=== PATIENT | female | born 1955 | race Caucasian/White ===

== ENCOUNTER 2019-09-14 15:16 | Inpatient (IN) | payer SELFPAY ==
[2019-09-14] VITALS (10 sets, daily range): BP systolic 136–162; BP diastolic 67–97; PULSE 91–108; RESP 16–22; TEMP 36.7–37.2; O2SAT 97–100; BMI 50.1
--- NOTE | ~2019-09-14 | XR_ITS ---
EXAMINATION: XR chest 1V portable EXAM DATE: 09/14/2019 16:04 INDICATION: Fall. TECHNIQUE: Frontal and lateral projections of the chest obtained and reviewed. There is no prior han dy for comparison. FINDINGS: The lungs are clear. There are no pleural effusions. Cardiac silhouette is prominent but magnified on this AP technique. There is no pneumothorax suspected. The bones and soft tissues are unremarkable. IMPRESSION: No acute cardiopulmonary findings. Reviewed, dictated and finalized at location A. CLERK
--- NOTE | ~2019-09-14 | XR_ITS ---
XR lumbar spine 2-3V 09/15/2019 08:51 Indication: Low back pain after fall Procedure: 3 views lumbar spine Comparison: No prior studies for comparison. Findings: There is disc narrowing at L3-4 and L1-2. There are prominent marginal osteophytes at L2-3, L3-4 and L5-S1. There is moderate mid and lower facet hypertrophy. No acute fracture or traumatic ma lalignment. No evidence for spondylolisthesis. Mild levocurvature. Sacral foramen are symmetric. Impression: 1: Moderate lumbar spondylosis. Reviewed, dictated and finalized at location A. SPHERIC TECHNICIAN Impression: 1: Moderate lumbar spondylosis.
--- NOTE | 2019-09-14 15:22 | ED_ITS ---
I attest that this documentation has been prepared under the direction and in the presence of . Aziza Lacey Scribe 09/14/19;15:22 HPI - General Adult General Stated complaint: FALL Time Seen by Provider: 09/14/19 15:17 Source: patient Mode of arrival: EMS Limitations: no limitations History of Present Illness HPI narrative: A 64 y/o female presents to the ED, via EMS, with c/o
--- NOTE | 2019-09-14 15:22 | ED.BACK ---
HPI - Back Pain/Injury General Chief Complaint: Back Pain/Injury Stated Complaint: FALL Time Seen by Provider: 09/14/19 15:16 Source: patient Mode of arrival: EMS Limitations: no limitations History of Present Illness HPI Narrative: A 64 y/o female presents to the ED, via EMS, with c/o chronic back pain that recently worsened. Per EMS, they arrived on the scene to find the pt laying on the floor. Pt was walking to get her medicine when she experienced severe back pain and lowered herself to the floor. Pt was incontinent of her urine. Pt lives alone and states she had been laying on the carpeted floor since 6:30 AM. Pt was able to reach a phone and call her son. Pt's son arrived and called EMS. Pt states she has had back pain for several years and is prescribed Cyclobenzaprine by her PCP. Pt did not eat breakfast this morning or take her medications. She reports diarrhea yesterday, left elbow pain, and a PMHx of DM and a HI with stents, but denies LOC, a fall, a fever, N/V, constipation, smoking, alcohol use, and a PMHx of a CVA. Pertinent past history: prior back pain Onset (ago): year(s) Timing: progressively worsening Related Data Home Medications Medication Instructions Recorded Confirmed Aspirin Low Dose 09/14/19 Celebrex 09/14/19 ProAir HFA 09/14/19 Singulair 09/14/19 Toprol XL 09/14/19 Victoza 2-Talib 09/14/19 albuterol sulfate 09/14/19 alendronate-vitamin D3 09/14/19 atorvastatin 09/14/19 cyclobenzaprine 09/14/19 magnesium 09/14/19 metformin 09/14/19 nitroglycerin 09/14/19 pantoprazole 09/14/19 Allergies Allergy/AdvReac Type Severity Reaction Status Date / Time ampicillin Allergy Unknown Verified 09/14/19 15:50 doxycycline Allergy Unknown Verified 09/14/19 15:50 Review of Systems Review of Systems: All systems reviewed & are unremarkable except as noted in HPI and below Constitutional: Constitutional: Denies fever(s) Comments: Denies: a fall Gastrointestinal: Gastrointestinal: Denies constipation, Reports diarrhea (yesterday), Denies nausea and Denies vomiting Genitourinary: Genitourinary: Reports urinary incontinence Musculoskeletal: Musculoskeletal: Reports back pain (chronic) Comments: Reports: left elbow pain Neurologic: Comments: Denies: LOC PMFSH Past Medical History Medical History (Updated 09/14/19 @ 19:04 by Zen Garcia MD) Diabetes Myocardial infarction with stents Social History Social History (Updated 09/14/19 @ 15:37 by Isha Melendez) Smoking status: Never smoker Alcohol intake: never Gender identity (if verbalized by the patient): Female Exam Narrative: Exam Narrative: General appearance: Well-developed, well-nourished, patient laying down in bed, poor hygienic condition, stool and urine all over the place, unable to sit up because of the pain in the lower back, Skin: Normal color Head: Normocephalic, nontraumatic Eyes: Clear conjunctiva ENT: Oropharynx normal, ears normal, nose normal Neck: Supple, nontender Chest and respiratory: Airway patent, no respiratory distress, no accessory muscle use Heart: Regular rate/rhythm Abdomen: Soft, nontender, no organomegaly, quiet bowel sounds Vascular: Normal peripheral pulses, normal capillary refill. Musculoskeletal: Diffuse tenderness across lumbar area, no bruises, no swelling, no step-off k Neurologic: Alert and oriented ?3, EDI COORDINATOR is normal as tested, no gross motor deficit Course Course Emergency Course: Improving Consultations Consultation #1: Discussed case with Mee and accepted admission. Date: 09/14/19 Time: 17:39 Vital Signs Vital signs: Vital Signs Temperature 36.9 C 09/14/19 15:38 Pulse Rate
--- NOTE | 2019-09-14 15:46 | ECG_ITS ---
Measurements Intervals [place] Rate: 96 P: 44 RI: 163 QRS: 49 QRSD: 93 T: 46 QT: 358 QTc: 454 Interpretive Statements SINUS RHYTHM POSSIBLE LEFT ATRIAL ENLARGEMENT LOW QRS VOLTAGE IN PRECORDIAL LEADS BASELINE ARTIFACT- I, II, AVR, V1 BORDERLINE ECG Electronically Signed On 09-14-2019 21:20:50 MALT HOUSE SUPERVISOR by Madan Milton D.O.
[2019-09-14 16:22] LABS: Alveolar/Arterial O2 Gradient 36.3 mmHg; Base Excess ABG -5.6 mEq/l (+/-2.0); Carboxyhemoglobin 1.4 % THb (0-2.0); Fractional Inspired Oxygen 21 %; HCO3 ABG 18.5 mEq/l (22.0-26.0); Methemoglobin ABG 0.3 %THb (0-1.5); Oxygen Content ABG 16.9 %vol (16.0-22.0); Oxygen Saturation ABG 95.1 % (95.0-100.0); Oxyhemoglobin 93.5 % THb (90.0-100.0); PCO2 ABG 31.9 mmHg (35.0-45.0); PO2 ABG 75.2 mmHg (80.0-100.0); PO2 FiO2 Ratio Arterial Blood 3.58 %; Reduced Hemoglobin 4.8 %THb (0-5.0); Total Hemoglobin 12.8 g/dL (12.0-18.0); pH ABG 7.381 (7.350-7.450)
[2019-09-14 16:23] LABS: Modified Allen's Test Pass; Site Drawn LEFT RADIAL
[2019-09-14 16:24] LABS: Device ROOM AIR
[2019-09-14 16:36] LABS: Basophils Absolute Auto 0.1 K/mm3 (0.0-0.1); Basophils Percent Auto 0.4 % (0.2-1.2); Eosinophils Percent Auto 0.2 % (0-4.4); Immature Granulocyte Absolute 0.08 K/mm3 (0.00-0.031); Immature Granulocyte Percent A 0.6 % (0-0.5); Lymphocytes Absolute Auto 1.77 K/mm3 (0.9-3.2); Lymphocytes Percent Auto 13.1 % (18.3-44.2); Mean Corpuscular HGB Conc 30.2 g/dl (32-36); Mean Corpuscular Hemoglobin 27.9 pg (26-34); Mean Corpuscular Volume 92.3 fl (80-100); Mean Platelet Volume 8.8 fl (7.4-10.4); Monocytes Percent Auto 7.1 % (2.6-8.5); Neutrophils Absolute Auto 10.7 K/mm3 (1.3-6.7); Neutrophils Percent Auto 78.6 % (45.5-73.1); Nucleated Red Blood Cells Perc 0.1 % (0.0-0.2); Platelet Count Result 357 k/mm3 (150-375); Red Blood Count 4.66 M/mm3 (4.2-5.4); Red Cell Distribution Width 14.5 % (11.5-14.5); White Blood Count 13.6 K/mm3 (4.5-10.0)
[2019-09-14 16:50] LABS: Alanine Aminotransferase 20 U/L (4-35); Albumin Level 4.5 g/dL (3.5-5.1); Alkaline Phosphatase 98 U/L (38-126); Aspartate Amino Transferase 35 U/L (14-36); Bilirubin,Total 0.3 mg/dL (0.2-1.3); Blood Urea Nitrogen 16 mg/dL (7-17); Calcium 10.2 mg/dL (8.4-10.2); Carbon Dioxide 15 mmol/L (22-30); Chloride 113 mmol/L (98-107); Creatine Kinase 313 U/L (30-135); Estimated Glomerular Filt Rate > 60; Glucose 178 mg/dL (65-105); Sodium 145 mmol/L (137-145)
[2019-09-14 17:10] LABS: Troponin I 0.517 ng/mL (0.000-0.034)
[2019-09-14 17:13] LABS: Add Urine Microscopic? YES; Appearance Urine Clear (Clear); Bilirubin Urine Negative (Negative); Blood Urine 1+ (Negative); Color Urine Colorless (Yellow); Glucose Urine UA Negative (Negative); Ketones Urine Negative (Negative); Leukocyte Esterase Ur Negative LEU/UL (Negative); Mucus Urine Rare /lpf; Nitrate Urine Negative (Negative); Protein Urine Negative (Negative); Specific Grav Ur 1.009 (1.001-1.035); Squamous Epithelial Cell Urine Rare /hpf (Few); Urobilinogen Urine Negative mg/dL (<2.0)
[2019-09-14 17:26] LABS: Amphetamine Screen Urine Negative (Negative); Barbiturate Screen Urine Negative (Negative); Benzodiazepines Screen Urine Negative (Negative); Cannabinoid Screen Urine Negative (Negative); Cocaine Screen Urine Negative (Negative); Methadone Screen Urine Negative (Negative); Opiate Screen Urine Negative (Negative); Phencyclidine Screen Urine Negative (Negative)
[2019-09-14] MEDS: ONDANSETRON INJ 4 MG/2 ML VIAL IV PUSH (17:59)
[2019-09-14] MEDS: MORPHINE SULFATE 4 MG/ML INJ IV PUSH (17:59)
[2019-09-14] MEDS: ASPIRIN 81 MG CHEWABLE TABLET 324 MG PO (18:00)
[2019-09-14] MEDS: ENOXAPARIN 100 MG/ML SYRINGE 110 MG SUB-Q (18:02)
--- NOTE | 2019-09-14 19:04 | ADMGEN ---
This patient, Ayse Taveras, was admitted to IMU Room 203-01 at 09/14/19 @ 1837. Patient/family oriented to hospital policies and general routines including ID bracelet, bed and alarms, visiting hours, pain management, procedures, bathroom and other care routines, personal items, smoking policy, room service/diet, and visiting hours. Valuables list has been completed. Information on how to activate the Rapid Response Team has been discussed. Patient/Family are encouraged to report perceived risks to care and to ask questions if they do not understand what they are told or what they should do.
[2019-09-14 20:22] LABS: Troponin I 0.595 ng/mL (0.000-0.034)
--- NOTE | 2019-09-14 20:51 | ADMGEN ---
This patient, Ayse Taveras, was admitted to IMU Room 203-01. Patient/family oriented to hospital policies and general routines including ID bracelet, bed and alarms, visiting hours, pain management, procedures, bathroom and other care routines, personal items, smoking policy, room service/diet, and visiting hours. Valuables list has been completed. Information on how to activate the Rapid Response Team has been discussed. Patient/Family are encouraged to report perceived risks to care and to ask questions if they do not understand what they are told or what they should do.
[2019-09-14] MEDS: ACETAMINOPHEN 325 MG TABLET 650 MG PO (22:49)
[2019-09-14 23:05] LABS: Troponin I 0.591 ng/mL (0.000-0.034)
--- NOTE | 2019-09-14 23:16 | PM.IMHP ---
H&P: HPI History of Present Illness Chief complaint: nstemi/exacerbation of lower back pain Narrative: Ayse Taveras is a 64 year old female who lives home alone. She has chronic back pain. Today the patient stated that she was bending over spreading out the branches on her [place] tree when her back started to her. The patient stated that her back felt weak and she could not stand up straight again. The patient tried hold on but slid onto the floor. The patient stated that she tried to get off the floor but was unable to. She was on the floor at 6:30 a.m. the morning of then waited to her son came home about 11 to give him a call. She thought maybe he was still at work and wanted to give him time to get home. Her son came over and attempted to get her to roll over and get up. It sounds like she took a Flexeril and then went back into the bed and slept for a little bit. The patient is chronically on Flexeril. She did eat breakfast this morning per reported diarrhea yesterday. Patient was not even able to roll over out of bed so her son activated EMS. Troponin left was 0.517 and the patient does not have any chest pain. The patient has a history of having coronary stents in the past. The patient is diabetic. Patient is admitted for elevated troponins and back pain. The back pain is chronic but just recently got worse today Review of Systems Review of Systems: All systems reviewed & are unremarkable except as noted in HPI and below Constitutional: Constitutional: Reports as per HPI and Reports fatigue Eyes: Eyes: Reports as per HPI and Reports no additional eye complaints ENT: Reports system reviewed and no additional complaints, except as documented and Reports hearing normal Comments: Floaters to right eye which was checked up with eye doctor. Cardiovascular: Cardiovascular: Reports no additional cardiovascular complaints Comments: No complaints of chest pain. History of stents. Respiratory: Respiratory: Reports no additional respiratory complaints and Reports no additional respiratory complaints Gastrointestinal: Gastrointestinal: Reports as per HPI and Reports no additional gastrointestinal complaints Musculoskeletal: Musculoskeletal: Reports no additional musculoskeletal complaints Integumentary/Breasts: Skin/Breast: Reports system reviewed and no additional complaints, except as docu and Reports as per HPI Neurologic: Reports system reviewed and no additional complaints, except as documented, Reports as per HPI and Reports Normal hearing present Psychiatric: Psychiatric: Reports no additional psychiatric complaints and Reports as per HPI Endocrine: Endocrine: Reports no additional endocrine complaints Hematologic/Lymphatic: Hematologic/Lymphatic: Reports no additional hematologic/lymphatic complaints Allergic/Immunologic: Allergic/Immunologic: Reports no additional allergic/immunologic complaints [facility] Past Medical History Medical History (Updated 09/14/19 @ 23:38 by Mee Machuca NP) Asthma Diabetes GERD with esophagitis Hyperlipidemia Myocardial infarction with stents Obstructive sleep apnea Osteoarthritis Psoriasis Vitamin D deficiency Surgical History Surgical History (Updated 09/14/19 @ 23:30 by Mee Machuca NP) H/O arthroscopic knee surgery Left H/O heart artery stent 2 stents H/O uvulectomy History of bilateral tubal ligation History of section, classical X2 History of renal stent Which was subsequently removed. History of tonsillectomy Family History Family History Mother Lung cancer Acute myocardial infarction Father Acute myocardial infarction Diabetes mellitus Sibling Diabetes mellitus Sibling Diabetes mellitus Social History Social History (Updated 09/14/19 @ 23:31 by Mee Machuca NP) Social History: The patient is on unemployment. She is trying for disability. She has 2 children of
[2019-09-15] VITALS (19 sets, daily range): BP systolic 119–141; BP diastolic 45–68; PULSE 78–114; RESP 18–22; TEMP 36.8–37.2; O2SAT 87–100
[2019-09-15] MEDS: ATORVASTATIN 10 MG TABLET PO ×2 (00:33→21:04)
[2019-09-15] MEDS: METOPROLOL TARTRATE 50 MG TAB PO ×3 (00:34→21:03)
[2019-09-15 04:52] LABS: Basophils Absolute Auto 0.1 K/mm3 (0.0-0.1); Basophils Percent Auto 0.7 % (0.2-1.2); Eosinophils Absolute Auto 0.1 K/mm3 (0-0.3); Eosinophils Percent Auto 1.3 % (0-4.4); Hematocrit 36.7 % (37.0-47.0); Hemoglobin 11.4 g/dL (12.0-15.0); Immature Granulocyte Absolute 0.05 K/mm3 (0.00-0.031); Immature Granulocyte Percent A 0.5 % (0-0.5); Lymphocytes Absolute Auto 2.72 K/mm3 (0.9-3.2); Lymphocytes Percent Auto 26.7 % (18.3-44.2); Mean Corpuscular HGB Conc 31.1 g/dl (32-36); Mean Corpuscular Hemoglobin 27.9 pg (26-34); Mean Corpuscular Volume 89.7 fl (80-100); Mean Platelet Volume 8.7 fl (7.4-10.4); Monocytes Absolute Auto 0.9 K/mm3 (0.1-0.6); Monocytes Percent Auto 9.1 % (2.6-8.5); Neutrophils Absolute Auto 6.3 K/mm3 (1.3-6.7); Neutrophils Percent Auto 61.7 % (45.5-73.1); Platelet Count Result 329 k/mm3 (150-375); Red Blood Count 4.09 M/mm3 (4.2-5.4); White Blood Count 10.2 K/mm3 (4.5-10.0)
[2019-09-15 05:16] LABS: Alanine Aminotransferase 17 U/L (4-35); Albumin Level 3.8 g/dL (3.5-5.1); Alkaline Phosphatase 77 U/L (38-126); Aspartate Amino Transferase 26 U/L (14-36); Bilirubin,Total 0.3 mg/dL (0.2-1.3); Blood Urea Nitrogen 15 mg/dL (7-17); Calcium 9.3 mg/dL (8.4-10.2); Carbon Dioxide 19 mmol/L (22-30); Chloride 111 mmol/L (98-107); Estimated Glomerular Filt Rate 56; Glucose 183 mg/dL (65-105); Magnesium 1.8 mg/dL (1.6-2.3); Sodium 143 mmol/L (137-145)
--- NOTE | 2019-09-15 06:00 | ECG_ITS ---
Measurements Intervals [place] Rate: 83 P: 45 VT: 152 QRS: 61 QRSD: 90 T: 57 QT: 404 QTc: 475 Interpretive Statements SINUS RHYTHM LOW QRS VOLTAGE IN PRECORDIAL LEADS BASELINE ARTIFACT- II, III, AVL, AVF, V3 BORDERLINE ECG Electronically Signed On 09-15-2019 10:25:02 VEHICLE ASSEMBLY INSPECTOR by Madan Milton D.O.
[2019-09-15 07:27] LABS: Glucose Point of Care 185 (65-105)
[2019-09-15 07:35] LABS: Hemoglobin A1C 7.8 % (<5.7)
[2019-09-15] MEDS: ACETAMINOPHEN 325 MG TABLET 650 MG PO ×2 (08:30→14:16)
[2019-09-15] MEDS: ENOXAPARIN 40 MG/0.4 ML SYRINGE SUB-Q (08:30)
[2019-09-15] MEDS: CELECOXIB 200 MG CAPSULE PO ×2 (08:31→16:33)
[2019-09-15] MEDS: PANTOPRAZOLE 40 MG TABLET PO (08:31)
[2019-09-15] MEDS: TOLNAFTATE 1% POWDER 45 GM BTL 1 APPLIC TOPICAL ×2 (08:31→21:05)
[2019-09-15] MEDS: LIDOCAINE 5% PATCH 2 PATCH TRANSDERM (09:41)
[2019-09-15 11:30] LABS: Glucose Point of Care 238 (65-105)
--- NOTE | 2019-09-15 12:17 | PC.NURSE ---
This patient, Ayse Taveras, was transferred to [ 255] on 09/15/19 at 1217. Personal belongings sent with patient. Belongings list checked and signed with receiving [ ]. Report given to [ JEZ Regalado @ 1210]. Appropriate documentation sent with patient.
--- NOTE | 2019-09-15 12:29 | PC.NURSE ---
Patient received from [facility]. Report received from JEZ Alcala.
[2019-09-15] MEDS: INSULIN ASPART (*BKC) 100 UNITS/ML SUB-Q ×2 (13:06→18:35)
[2019-09-15 13:09] LABS: Glucose Point of Care 241 (65-105)
--- NOTE | 2019-09-15 13:14 | PM.IMPN ---
Progress Note: A&P Assessment and Plan (1) Elevated troponin: Code(s): R79.89 - Other specified abnormal findings of blood chemistry Status: Acute Assessment and Plan: Patient with elevated tropes mild inflated most likely demand ischemia due to pain and fall unlikely acute coronary syndrome is patient does not have any chest pain (2) Unable to ambulate: Code(s): R26.2 - Difficulty in walking, not elsewhere classified Status: Acute Assessment and Plan: Patient is morbidly obese with chronic back pain most likely secondary to flare up or muscular pain and weakness will have a PT OT evaluate the patient patient will benefit from acute rehab (3) Chronic lower back pain: Qualifiers: Back pain laterality: bilateral Sciatica presence: without sciatica Qualified Code(s): M54.5 - Low back pain; G89.29 - Other chronic pain Code(s): M54.5 - Low back pain; G89.29 - Other chronic pain Status: Acute Assessment and Plan: Patient is 64-year-old female morbidly obese with BMI over 50 apparently patient was bending down to pick remaining of the [place] tree and she was not able to extend her back and was not able to move even itchy patient started down to the floor and remained to the floor until her son arrived and helped her get up from the floor patient took her Flexeril which she does normally and went to sleep however again patient had difficulty with movement and the pain in the back was persisting see was brought to the emergency department for further evaluation, she is also found to have elevated tropes denies any complaint of chest pain shortness of breath palpitation fever or chills. (4) Diabetes: Qualifiers: Diabetes mellitus complication status: without complication Diabetes mellitus fdc insulin use: without supervisor intermediates use Diabetes mellitus type: type 2 Qualified Code(s): E11.9 - Type 2 diabetes mellitus without complications Code(s): E11.9 - Type 2 diabetes mellitus without complications Status: Chronic Assessment and Plan: Will continue home regimen and monitor (5) Hyperlipidemia: Code(s): E78.5 - Hyperlipidemia, unspecified Status: Acute Assessment and Plan: Will continue statin Subjective Interval history: Patient is 64-year-old female morbidly obese with BMI over 50 apparently patient was bending down to pick remaining of the [place] tree and she was not able to extend her back and was not able to move even itchy patient started down to the floor and remained to the floor until her son arrived and helped her get up from the floor patient took her Flexeril which she does normally and went to sleep however again patient had difficulty with movement and the pain in the back was persisting see was brought to the emergency department for further evaluation, she is also found to have elevated tropes denies any complaint of chest pain shortness of breath palpitation fever or chills. Review of Systems Review of Systems: All systems reviewed & are unremarkable except as noted in HPI and below Constitutional: Constitutional: Reports as per HPI Eyes: Eyes: Reports as per HPI ENT: Reports as per HPI Cardiovascular: Cardiovascular: Reports as per HPI Respiratory: Respiratory: Reports as per HPI Gastrointestinal: Gastrointestinal: Reports as per HPI Musculoskeletal: Musculoskeletal: Reports as per HPI Neurologic: Reports as per HPI Psychiatric: Psychiatric: Reports as per HPI Exam Narrative: Exam Narrative: Patient is morbidly obese Const: General: no acute distress and uncomfortable HENMT: General nose exam: nares normal Mouth: Yes moist mucous membranes Eyes: General: appearance normal, both eyes and all related structures Sclera: sclerae normal Neck: Neck: supple Resp: Effort & Inspection: normal respiratory effort Auscultation: clear to auscultation bilaterally Cardio: Rate: regular rate
[2019-09-15] MEDS: MENTHOL 10% / METHYL SALICYLATE 15% 57 GM TUBE 1 APPLIC TOPICAL (16:33)
[2019-09-15] MEDS: VANCOMYCIN ORAL 125 MG/2.5 ML SYRUP PO ×2 (18:34→23:39)
[2019-09-15 18:40] LABS: Glucose Point of Care 218 (65-105)
[2019-09-15 21:13] LABS: Glucose Point of Care 230 (65-105)
[2019-09-16] VITALS (14 sets, daily range): BP systolic 110–144; BP diastolic 50–78; PULSE 66–90; RESP 18–20; TEMP 36.1–36.3; O2SAT 94–100
[2019-09-16] MEDS: VANCOMYCIN ORAL 125 MG/2.5 ML SYRUP PO ×3 (05:32→17:55)
[2019-09-16 06:05] LABS: Hematocrit 36.8 % (37.0-47.0); Hemoglobin 11.2 g/dL (12.0-15.0); Mean Corpuscular HGB Conc 30.4 g/dl (32-36); Mean Corpuscular Hemoglobin 27.9 pg (26-34); Mean Corpuscular Volume 91.5 fl (80-100); Platelet Count Result 310 k/mm3 (150-375); Red Blood Count 4.02 M/mm3 (4.2-5.4); White Blood Count 9.4 K/mm3 (4.5-10.0)
[2019-09-16 06:17] LABS: Blood Urea Nitrogen 20 mg/dL (7-17); Calcium 9.1 mg/dL (8.4-10.2); Carbon Dioxide 21 mmol/L (22-30); Chloride 109 mmol/L (98-107); Estimated Glomerular Filt Rate > 60; Glucose 205 mg/dL (65-105); Potassium 3.9 mmol/L (3.4-5.0); Sodium 141 mmol/L (137-145)
[2019-09-16] MEDS: TOLNAFTATE 1% POWDER 45 GM BTL 1 APPLIC TOPICAL ×2 (09:01→20:47)
[2019-09-16] MEDS: PANTOPRAZOLE 40 MG TABLET PO (09:01)
[2019-09-16] MEDS: CELECOXIB 200 MG CAPSULE PO ×2 (09:01→17:55)
[2019-09-16] MEDS: ENOXAPARIN 40 MG/0.4 ML SYRINGE SUB-Q (09:01)
[2019-09-16] MEDS: METOPROLOL TARTRATE 50 MG TAB PO ×2 (09:02→20:44)
[2019-09-16] MEDS: LIDOCAINE 5% PATCH 2 PATCH TRANSDERM (09:07)
--- NOTE | 2019-09-16 12:45 | PM.IMPN ---
Progress Note: A&P Assessment and Plan (1) Elevated troponin: Code(s): R79.89 - Other specified abnormal findings of blood chemistry Status: Acute Assessment and Plan: Patient with elevated tropes mild inflated most likely demand ischemia due to pain and fall unlikely acute coronary syndrome is patient does not have any chest pain (2) Unable to ambulate: Code(s): R26.2 - Difficulty in walking, not elsewhere classified Status: Acute Assessment and Plan: Patient is morbidly obese with chronic back pain most likely secondary to flare up or muscular pain and weakness will have a PT OT evaluate the patient patient will benefit from acute rehab (3) Chronic lower back pain: Qualifiers: Back pain laterality: bilateral Sciatica presence: without sciatica Qualified Code(s): M54.5 - Low back pain; G89.29 - Other chronic pain Code(s): M54.5 - Low back pain; G89.29 - Other chronic pain Status: Acute Assessment and Plan: Patient is 64-year-old female morbidly obese with BMI over 50 apparently patient was bending down to pick remaining of the [place] tree and she was not able to extend her back and was not able to move even itchy patient started down to the floor and remained to the floor until her son arrived and helped her get up from the floor patient took her Flexeril which she does normally and went to sleep however again patient had difficulty with movement and the pain in the back was persisting see was brought to the emergency department for further evaluation, she is also found to have elevated tropes denies any complaint of chest pain shortness of breath palpitation fever or chills., on 09/15 patient had couple of loose stool with recent history of C. Diff, most likely patient has C diff and present on arrival, placed patient on isolation and started of oral vancomycine, today patient stats feeling better still has loose BM, her back pain is improving and patient is working with PT/OT. (4) Diabetes: Qualifiers: Diabetes mellitus type: type 2 Diabetes mellitus nursing home insulin use: without terminal block assembler use Diabetes mellitus complication status: without complication Qualified Code(s): E11.9 - Type 2 diabetes mellitus without complications Code(s): E11.9 - Type 2 diabetes mellitus without complications Status: Chronic Assessment and Plan: Will continue home regimen and monitor (5) Hyperlipidemia: Code(s): E78.5 - Hyperlipidemia, unspecified Status: Acute Assessment and Plan: Will continue statin (6) C. difficile colitis: Code(s): A04.72 - Enterocolitis due to Clostridium difficile, not specified as recurrent Status: Acute Assessment and Plan: Patient with recent history of C diff developed loos stool upon arrival most likely patient has C diff upon arrival, will start patient on Vancomycin, monitor. Subjective Interval history: Patient is 64-year-old female morbidly obese with BMI over 50 apparently patient was bending down to pick remaining of the [place] tree and she was not able to extend her back and was not able to move even itchy patient started down to the floor and remained to the floor until her son arrived and helped her get up from the floor patient took her Flexeril which she does normally and went to sleep however again patient had difficulty with movement and the pain in the back was persisting see was brought to the emergency department for further evaluation, she is also found to have elevated tropes denies any complaint of chest pain shortness of breath palpitation fever or chills., on 09/15 patient had couple of loose stool with recent history of C. Diff, most likely patient has C diff and present on arrival, placed patient on isolation and started of oral vancomycine, today patient stats feeling better still has loose BM, her back pain is improving and patient is working with PT/OT. Review of Sy
[2019-09-16] MEDS: ACETAMINOPHEN 325 MG TABLET 650 MG PO ×2 (13:03→17:56)
[2019-09-16] MEDS: INSULIN ASPART (*BKC) 100 UNITS/ML SUB-Q ×2 (13:11→17:55)
[2019-09-16] MEDS: MENTHOL 10% / METHYL SALICYLATE 15% 57 GM TUBE 1 APPLIC TOPICAL (13:12)
[2019-09-16 14:04] LABS: Glucose Point of Care 238 (65-105)
[2019-09-16 14:04] LABS: Glucose Point of Care 183 (65-105)
[2019-09-16 18:05] LABS: Glucose Point of Care 212 (65-105)
[2019-09-16] MEDS: ATORVASTATIN 10 MG TABLET PO (20:47)
[2019-09-16 21:44] LABS: Glucose Point of Care 213 (65-105)
[2019-09-17] VITALS (13 sets, daily range): BP systolic 110–148; BP diastolic 53–83; PULSE 69–94; RESP 16–20; TEMP 36.1–36.8; O2SAT 94–99
[2019-09-17] MEDS: VANCOMYCIN ORAL 125 MG/2.5 ML SYRUP PO ×4 (00:18→18:09)
[2019-09-17 05:42] LABS: Hematocrit 33.4 % (37.0-47.0); Hemoglobin 10.4 g/dL (12.0-15.0); Mean Corpuscular HGB Conc 31.1 g/dl (32-36); Mean Corpuscular Volume 89.8 fl (80-100); Mean Platelet Volume 8.7 fl (7.4-10.4); Platelet Count Result 284 k/mm3 (150-375); Red Blood Count 3.72 M/mm3 (4.2-5.4); Red Cell Distribution Width 14.6 % (11.5-14.5); White Blood Count 9.2 K/mm3 (4.5-10.0)
[2019-09-17 06:00] LABS: Blood Urea Nitrogen 17 mg/dL (7-17); Carbon Dioxide 22 mmol/L (22-30); Chloride 110 mmol/L (98-107); Estimated Glomerular Filt Rate > 60; Glucose 219 mg/dL (65-105); Potassium 3.9 mmol/L (3.4-5.0); Sodium 140 mmol/L (137-145)
[2019-09-17] MEDS: CELECOXIB 200 MG CAPSULE PO ×2 (08:22→18:09)
[2019-09-17] MEDS: PANTOPRAZOLE 40 MG TABLET PO (08:22)
[2019-09-17] MEDS: ACETAMINOPHEN 325 MG TABLET 650 MG PO ×2 (08:23→18:09)
[2019-09-17] MEDS: ENOXAPARIN 40 MG/0.4 ML SYRINGE SUB-Q (08:23)
[2019-09-17] MEDS: LIDOCAINE 5% PATCH 2 PATCH TRANSDERM (08:23)
[2019-09-17] MEDS: TOLNAFTATE 1% POWDER 45 GM BTL 1 APPLIC TOPICAL ×2 (08:24→20:17)
[2019-09-17] MEDS: METOPROLOL TARTRATE 50 MG TAB PO ×2 (08:24→20:17)
[2019-09-17] MEDS: INSULIN ASPART (*BKC) 100 UNITS/ML SUB-Q (11:45)
--- NOTE | 2019-09-17 13:57 | PM.IMPN ---
Progress Note: A&P Assessment and Plan (1) Elevated troponin: Code(s): R79.89 - Other specified abnormal findings of blood chemistry Status: Acute Assessment and Plan: Patient with elevated tropes mild inflated most likely demand ischemia due to pain and fall unlikely acute coronary syndrome is patient does not have any chest pain (2) Unable to ambulate: Code(s): R26.2 - Difficulty in walking, not elsewhere classified Status: Acute Assessment and Plan: Patient is morbidly obese with chronic back pain most likely secondary to flare up or muscular pain and weakness will have a PT OT evaluate the patient patient will benefit from acute rehab (3) Chronic lower back pain: Qualifiers: Back pain laterality: bilateral Sciatica presence: without sciatica Qualified Code(s): M54.5 - Low back pain; G89.29 - Other chronic pain Code(s): M54.5 - Low back pain; G89.29 - Other chronic pain Status: Acute Assessment and Plan: Patient is 64-year-old female morbidly obese with BMI over 50 apparently patient was bending down to pick remaining of the [place] tree and she was not able to extend her back and was not able to move even itchy patient started down to the floor and remained to the floor until her son arrived and helped her get up from the floor patient took her Flexeril which she does normally and went to sleep however again patient had difficulty with movement and the pain in the back was persisting see was brought to the emergency department for further evaluation, she is also found to have elevated tropes denies any complaint of chest pain shortness of breath palpitation fever or chills., on 09/15 patient had couple of loose stool with recent history of C. Diff, most likely patient has C diff and present on arrival, placed patient on isolation and started of oral vancomycine, today patient stats feeling better stool are semiformed and 1 episode today, her back pain is improving and patient is working with PT/OT. (4) Diabetes: Qualifiers: Diabetes mellitus type: type 2 Diabetes mellitus laborer marine terminal insulin use: without laborer marine terminal use Diabetes mellitus complication status: without complication Qualified Code(s): E11.9 - Type 2 diabetes mellitus without complications Code(s): E11.9 - Type 2 diabetes mellitus without complications Status: Chronic Assessment and Plan: Will continue home regimen and monitor (5) Hyperlipidemia: Code(s): E78.5 - Hyperlipidemia, unspecified Status: Acute Assessment and Plan: Will continue statin (6) C. difficile colitis: Code(s): A04.72 - Enterocolitis due to Clostridium difficile, not specified as recurrent Status: Acute Assessment and Plan: Patient with recent history of C diff developed loos stool upon arrival most likely patient has C diff upon arrival, started patient on Vancomycin, monitor. today patient had one episode semiformed stool, will monitor once her stool is formed will discharged, Subjective Interval history: Patient is 64-year-old female morbidly obese with BMI over 50 apparently patient was bending down to pick remaining of the [employer] and she was not able to extend her back and was not able to move even itchy patient started down to the floor and remained to the floor until her son arrived and helped her get up from the floor patient took her Flexeril which she does normally and went to sleep however again patient had difficulty with movement and the pain in the back was persisting see was brought to the emergency department for further evaluation, she is also found to have elevated tropes denies any complaint of chest pain shortness of breath palpitation fever or chills., on 09/15 patient had couple of loose stool with recent history of C. Diff, most likely patient has C diff and present on arrival, placed patient on isolation and started of oral vancomycine, today sheri
[2019-09-17] MEDS: MENTHOL 10% / METHYL SALICYLATE 15% 57 GM TUBE 1 APPLIC TOPICAL (18:09)
[2019-09-17 18:14] LABS: Glucose Point of Care 186 (65-105)
[2019-09-17 18:14] LABS: Glucose Point of Care 231 (65-105)
[2019-09-17 18:14] LABS: Glucose Point of Care 175 (65-105)
[2019-09-17] MEDS: ATORVASTATIN 10 MG TABLET PO (20:16)
[2019-09-17 21:59] LABS: Glucose Point of Care 240 (65-105)
[2019-09-17 22:11] LABS: Add Urine Microscopic? YES; Appearance Urine Clear (Clear); Bacteria Urine Trace /hpf; Bilirubin Urine Negative (Negative); Blood Urine 1+ (Negative); Color Urine Straw (Yellow); Glucose Urine UA 1+ mg/dL (Negative); Ketones Urine Negative (Negative); Leukocyte Esterase Ur 2+ LEU/UL (Negative); Nitrate Urine Negative (Negative); Protein Urine Negative (Negative); RBC Urine 0-2 /hpf (0-2); Specific Grav Ur 1.009 (1.001-1.035); Squamous Epithelial Cell Urine Rare /hpf (Few); Urobilinogen Urine Negative mg/dL (<2.0)
[2019-09-18] VITALS: PULSE 102
[2019-09-18] MEDS: VANCOMYCIN ORAL 125 MG/2.5 ML SYRUP PO ×3 (00:10→11:40)
[2019-09-18] MEDS: ACETAMINOPHEN 325 MG TABLET 650 MG PO ×3 (02:59→13:08)
[2019-09-18 04:00] VITALS: PULSE 68
[2019-09-18 05:39] LABS: Hematocrit 37.6 % (37.0-47.0); Hemoglobin 10.9 g/dL (12.0-15.0); Mean Corpuscular Hemoglobin 27.9 pg (26-34); Mean Corpuscular Volume 96.2 fl (80-100); Platelet Count Result 290 k/mm3 (150-375); Red Blood Count 3.91 M/mm3 (4.2-5.4); Red Cell Distribution Width 15.1 % (11.5-14.5); White Blood Count 9.6 K/mm3 (4.5-10.0)
[2019-09-18 05:43] VITALS: BP 147/86; PULSE 79; RESP 16; TEMP 36.1; O2SAT 96
[2019-09-18 08:00] VITALS: PULSE 78
[2019-09-18] MEDS: CELECOXIB 200 MG CAPSULE PO (08:14)
[2019-09-18] MEDS: PANTOPRAZOLE 40 MG TABLET PO (08:15)
[2019-09-18] MEDS: ENOXAPARIN 40 MG/0.4 ML SYRINGE SUB-Q (08:15)
[2019-09-18] MEDS: LIDOCAINE 5% PATCH 2 PATCH TRANSDERM (08:15)
[2019-09-18 08:20] VITALS: PULSE 73
[2019-09-18] MEDS: METOPROLOL TARTRATE 50 MG TAB PO (08:20)
[2019-09-18] MEDS: TOLNAFTATE 1% POWDER 45 GM BTL 1 APPLIC TOPICAL (08:21)
[2019-09-18] MEDS: INSULIN ASPART (*BKC) 100 UNITS/ML SUB-Q ×2 (08:27→11:40)
[2019-09-18 09:26] LABS: Blood Urea Nitrogen 17 mg/dL (7-17); Calcium 10.1 mg/dL (8.4-10.2); Carbon Dioxide 22 mmol/L (22-30); Chloride 106 mmol/L (98-107); Estimated Glomerular Filt Rate > 60; Glucose 229 mg/dL (65-105); Potassium 3.8 mmol/L (3.4-5.0); Sodium 143 mmol/L (137-145)
[2019-09-18 10:29] LABS: Glucose Point of Care 224 (65-105)
[2019-09-18 11:40] LABS: Glucose Point of Care 272 (65-105)
--- NOTE | 2019-10-11 18:13 | DS_ITS ---
This report was moved to the correct visit, [id number], on November 14, 2019. Original report was signed by Dr. Degroot on October 11, 2019 at 1823. DS: Diagnosis Discharge Diagnosis (1) Elevated troponin: Code(s): R79.89 - Other specified abnormal findings of blood chemistry Status: Acute Assessment and Plan: Progress Note: A&P Assessment and Plan (1) Elevated troponin: Code(s): R79.89 - Other specified abnormal findings of blood chemistry Status: Acute Assessment and Plan: Patient with elevated tropes mild inflated most likely demand ischemia due to pain and fall unlikely acute coronary syndrome is patient does not have any chest pain (2) Unable to ambulate: Code(s): R26.2 - Difficulty in walking, not elsewhere classified Status: Acute Assessment and Plan: (2) Unable to ambulate: Code(s): R26.2 - Difficulty in walking, not elsewhere classified Status: Acute Assessment and Plan: Patient is morbidly obese with chronic back pain most likely secondary to flare up or muscular pain and weakness will have a PT OT evaluate the patient patient will benefit from acute rehab (3) Chronic lower back pain: Qualifiers: Back pain laterality: bilateral Sciatica presence: without sciatica Qualified Code(s): M54.5 - Low back pain; G89.29 - Other chronic pain Code(s): M54.5 - Low back pain; G89.29 - Other chronic pain Status: Acute Assessment and Plan: (3) Chronic lower back pain: Qualifiers: Back pain laterality: bilateral Sciatica presence: without sciatica Qualified Code(s): M54.5 - Low back pain; G89.29 - Other chronic pain Code(s): M54.5 - Low back pain; G89.29 - Other chronic pain Status: Acute DS: Summary Hospital Course Reason for hospitalization: Ayse Taveras is a 64 year old female who lives home alone. She has chronic back pain. Today the patient stated that she was bending over spreading out the branches on her [place] tree when her back started to her. The patient stated that her back felt weak and she could not stand up straight again. The patient tried hold on but slid onto the floor. The patient stated that she tried to get off the floor but was unable to. She was on the floor at 6:30 a.m. the morning of then waited to her son came home about 11 to give him a call. She thought maybe he was still at work and wanted to give him time to get home. Her son came over and attempted to get her to roll over and get up. It sounds like she took a Flexeril and then went back into the bed and slept for a little bit. The patient is chronically on Flexeril. She did eat breakfast this morning per reported diarrhea yesterday. Patient was not even able to roll over out of bed so her son activated EMS. Troponin left was 0.517 and the patient does not have any chest pain. The patient has a history of having coronary stents in the past. The patient is diabetic. Patient is admitted for elevated troponins and back pain. The back pain is chronic but just recently got worse today Hospital Course: Patient is 64-year-old female morbidly obese with BMI over 50 apparently patient was bending down to pick remaining of the [employer] [place] [employer] tree and she was not able to extend her back and was not able to move even itchy patient started down to the floor and remained to the floor until her son arrived and helped her get up from the floor patient took her Flexeril which she does normally and went to sleep however again patient had difficulty with movement and the pain in the back was persisting see was brought to the emergency department for further evaluation, she is also found to have elevated tropes denies any complaint of chest pain shortness of breath palpitation fever or chills., on 12
== END 2019-09-18 15:00 | disposition home or self-care (01) | DRG 347 ==
LOC: ANHED 15:46 → ANHIMU 19:04 → ANH2MED 09-16 16:45 → ANHIMU 09-21 13:15
PROVIDERS: Nurse Practitioner; Admitting Provider Internal Medicine; Emergency Provider Emergency Medicine; Visit Provider Family Medicine
DX: M54.5 Low back pain (principal); G89.29 Other chronic pain; I24.8 Other forms of acute ischemic heart disease; A04.72 Enterocolitis due to Clostridium difficile, not specified as recurrent; J45.909 Unspecified asthma, uncomplicated; K21.9 Gastro-esophageal reflux disease without esophagitis; E78.5 Hyperlipidemia, unspecified; G47.33 Obstructive sleep apnea (adult) (pediatric); L40.9 Psoriasis, unspecified; E11.9 Type 2 diabetes mellitus without complications; E55.9 Vitamin D deficiency, unspecified; M19.90 Unspecified osteoarthritis, unspecified site; W01.0XXA Fall on same level from slipping, tripping and stumbling without subsequent striking against object, initial encounter; E66.01 Morbid (severe) obesity due to excess calories; R26.2 Difficulty in walking, not elsewhere classified; Z68.43 Body mass index [BMI] 50.0-59.9, adult; Z95.5 Presence of coronary angioplasty implant and graft; I25.2 Old myocardial infarction; Z79.82 Long term (current) use of aspirin
CPT/HCPCS: 36415; 36600; 51701; 71045; 72100; 80048; 80053; 80307; 81001; 82375; 82550; 82805; 83036; 83050; 83735; 84443; 84484; 85025; 85027; 87077; 87086; 87088; 93005; 94640; 96372; 96374; 96375; 97110; 97116; 97161; 97165; 97530; 97535; 99285; A9270; J1650; J1815; J2270; J2405